=== PATIENT | male | born 1935 | race Caucasian/White ===

== ENCOUNTER 2016-10-06 10:20 | Inpatient (IN) | payer OTHER, MEDICARE ==
[~2016-10-06] VITALS: Ht 182.9 cm; Wt 78.5 kg
[2016-10-19] VITALS (12 sets, daily range): BP systolic 135–145; BP diastolic 70–83; PULSE 60–85; RESP 16–18; TEMP 98.2–98.6; O2SAT 97–99
[2016-10-19] MEDS ORDERED: HEPARIN SODIUM - IV 10,000 UNITS/10 ML VIAL ONE (06:05)
[2016-10-19] MEDS ORDERED: METO25TA3 PO (07:15)
[2016-10-19] MEDS ORDERED: METF500T PO (07:15)
[2016-10-19] MEDS ORDERED: AZOR10TA2 PO (07:15)
--- NOTE | 2016-10-19 07:26 | HHI.HP ---
History of Present Illness Chief Complaint: AAA History of Present Illness 81 yo male with asymptomatic AAA, was monitored for years but recently has crossed 5.5 cm threshold. No new back pain or any abdominal pain. Feels well - no recent change in history that would preclude OR. Past/Family/Social History Past Medical History HTN AAA CRI CAD Back pain Social History nonsmoker Bahai Family History NC Home Medications Reported Medications Amlodipine-Olmesartan (Dolores)10-20 Mg Tab1 Tab PO DAILY #30 TAB Ref 0 10/19/16 Metoprolol Tartrate 25 Mg Tab25 Mg PO DAILY #30 TAB Ref 0 10/19/16 Metformin 500 Mg [id number] Mg PO BIDPC #60 TAB Ref 0 With meals 10/19/16 Coded Allergies: No Known Allergies (Unverified , 10/19/16) Review of Systems Constitutional: DENIES: Fever, Chills Respiratory: DENIES: Shortness of breath Cardiovascular: DENIES: Chest pain, Claudication Gastrointestinal: DENIES: Abdominal pain, Vomiting, Anorexia Physical Exam Neuro: alert, oriented, no distress, DEJESUS HEENT: NC/AT; wears glasses Neck: no JVD Heart: reg rate, no M Lungs: clear B inspiratory and expiratory Abdomen: nontender Vascular: palpable femoral pulses Extremities: DEJESUS symmetrically pending will make in OR CTA reviewed Assessment and Plan Plan EVAR No blood products per patient wishes Discharge Planning 1-2 days cell: [phone] Pipo Barlow MD Oct 19, 2016 07:25
--- NOTE | 2016-10-19 07:31 | RADRPT ---
EXAM DATE/TIME: 10/19/2016 06:58 [place] COMPARISON: No previous studies available for comparison. INDICATIONS : Evaluate for pneumonia, pneumothorax and communicable disease. Pre op MEDICAL HISTORY : Cardiovascular disease. SURGICAL HISTORY : None. ENCOUNTER: Initial ACUITY: 1 day PAIN SCORE: 0/10 LOCATION: Bilateral chest FINDINGS: A single view of the chest demonstrates the lungs to be symmetrically aerated without evidence of mas s, infiltrate or effusion. The cardiomediastinal contours are unremarkable. Osseous structures are intact. CONCLUSION: 1. No acute cardiopulmonary disease. Eliseo Whyte MD on October 19, 2016 at 7:28 Board Certified Radiologist. This report was verified electronically.
[2016-10-19] MEDS ORDERED: ceFAZolin 2 GM PREMIX 50 ML ONE (08:06)
[2016-10-19] MEDS ORDERED: IOHEXOL 300 MG/ML 100 ML BTL (for Rad CT) OTHER ONE (08:57)
[2016-10-19] MEDS ORDERED: CHLORHEXIDINE GLUCONATE 2 % 1 PACK (2 CLOTHS) TOPICAL PRN (09:00)
[2016-10-19] MEDS ORDERED: LACTATED RINGER'S 1000 ML IV PRN (09:00)
[2016-10-19] MEDS ORDERED: METOPROLOL TARTRATE 25 MG TAB PO PRN (09:00)
[2016-10-19] MEDS ORDERED: POVIDONE IODINE 5% (ANTISEPSIS KIT) 4 APPLICATIONS EACH NARE PRN (09:00)
[2016-10-19] MEDS ORDERED: SODIUM CHLORID 0.9% 500 ML IV PRN (09:00)
[2016-10-19] MEDS ORDERED: INSULIN HUMAN REGULAR 1,000 UNITS/10 ML VIAL SQ PRN (09:00)
--- NOTE | 2016-10-19 10:50 | HHI.PR ---
Immediate Post Op Note Procedure Date: Oct 19, 2016 Pre Op Diagnosis: AAA Post Op Diagnosis: AAA Surgeon: Pipo Barlow Adjunct Professor(s): none Procedure: EVAR with 2 docking limbs B [address]ERT[address]IED COURT/MEDICAL INTERPRETER Perclose Findings: successful EVAR; good perfusion of B renal arteries and B hypogastric arteries after EVAR Good pedal signals at end of case Additional Information: Devices: [email or web address] Zenith 28-82 (main body) Zenith 13-90 and 20-90 (contralateral - LEFT) Zenith 24-90 (ipsilateral - RIGHT) Complications: none apparent Specimen(s) removed: none Estimated blood loss: 100mL Anesthesia: General Drains: None Fluids: 1800mL x'oid; 650 mL UOP IVF Patient to: PACU Patient Condition: Good Implant/Devices: SEE IMPLANT LOG (if applicable) Date/Time of Procedure: SEE SURGICAL CARE RECORD Pipo Barlow MD Oct 19, 2016 10:50
[2016-10-19] MEDS ORDERED: DO NOT ADM ANY ANTICOAGULANT DRUGS PRN (10:56)
[2016-10-19] MEDS: LACTATED RINGER'S 1000 ML INJ 1,000 ML IV SCH (11:00)
[2016-10-19] MEDS ORDERED: HYDROmorphone HCL 2 MG TAB PO PRN (11:00)
[2016-10-19] MEDS ORDERED: fentaNYL CITRATE 250 MCG/5 ML AMP ONE (11:04)
[2016-10-19] MEDS ORDERED: PROTAMINE SULFATE 50 MG/5 ML VIAL IV ONE (12:00)
[2016-10-19 12:16] LABS: BICARBONATE 23.7 MEQ/L (21.0-32.0); POTASSIUM 3.6 MEQ/L (3.5-5.1)
--- NOTE | 2016-10-19 14:20 | EKG ---
Date Performed: 10/19/2016 Time Performed: 07:14:27 PTAGE: 81 years EKG: Sinus rhythm MARKED LEFT AXIS DEVIATION PATTERN CONSISTENT WITH PULMONARY DISEASE VOLTAGE CRITERIA FOR LVH NONSPE CIFIC T-WAVE ABNORMALITY ABNORMAL ECG NO PREVIOUS TRACING DOCTOR: Ambrose Gutierrez Interpretating Date/Time 10/19/2016 14:16:06
[2016-10-19] MEDS ORDERED: IOHEXOL 300 MG/ML 50 ML BTL (for RAD DIAG) ONE (15:17)
[2016-10-19] MEDS ORDERED: PROPOFOL 200 MG/20 ML AMP IV ONE (15:18)
[2016-10-19] MEDS ORDERED: NEOSTIGMINE 3 MG/3 ML SYR IV ONE (15:19)
[2016-10-19] MEDS ORDERED: PHENYLEPH/NS 1000 MCG/10 ML SYR IV ONE (15:19)
[2016-10-19] MEDS ORDERED: LACTATED RINGER'S 1000 ML INJ 1,000 ML IV ONE (15:20)
[2016-10-19] MEDS ORDERED: NORMOSOL R INJ 1,000 ML IV ONE (15:20)
[2016-10-19] MEDS ORDERED: SODIUM CHLORID 0.9% 500 ML INJ 500 ML IV ONE (15:20)
--- NOTE | 2016-10-19 16:59 | PD.VS.PN ---
Subjective POD #: 0 Procedure(s): EVAR Subjective/Hospital Course feels well overall, no complaints. Fatigued Objective Vitals/I&O Date Time Temp Pulse Resp B/P Pulse Ox O2 Delivery O2 Flow Rate FiO2 10/19/16 16:04 71 10/19/16 15:33 98.6 71 16 145/83 98 Arterial Line 10/19/16 15:00 70 10/19/16 14:48 65 10/19/16 13:00 61 12 137/69 100 Nasal Cannula 2 10/19/16 11:45 97.6 62 15 145/76 100 Nasal Cannula 2 10/19/16 11:30 58 22 139/79 100 Nasal Cannula 2 139/69 10/19/16 11:15 58 20 126/72 100 Nasal Cannula 2 124/63 10/19/16 11:00 64 20 132/74 100 Nasal Cannula 3 118/65 10/19/16 10:53 97.5 65 26 131/73 100 Nasal Cannula 3 112/62 10/19/16 07:19 98.2 60 18 142/83 99 10/19/16 10/19/16 10/19/16 07:00 15:00 23:00 Intake Total 2160 ml 582 ml Output Total 2075 ml 1350 ml Balance 85 ml -768 ml Exam: groins ok Feet warm and motor intact Laboratory Laboratory Tests Test 10/19/16 11:20 Sodium Level 139 Potassium Level 3.6 Chloride Level 104 Carbon Dioxide Level 23.7 Anion Gap 11 Blood Urea Nitrogen 29 Creatinine 1.33 Estimat Glomerular Filtration 52 Rate Random Glucose 155 Calcium Level 7.6 Assessment and Plan Plan Doing well Cardiac diet Harding out in a.m. OOB and ambulate in a.m. Discharge Planning Likely Wednesday Pipo Barlow MD Oct 19, 2016 16:59
[2016-10-20] VITALS (25 sets, daily range): BP systolic 133–152; BP diastolic 74–87; PULSE 60–88; RESP 16–18; TEMP 98.1–99; O2SAT 96–98
--- NOTE | 2016-10-20 06:53 | PD.VS.PN ---
Subjective POD #: 1 Procedure(s): EVAR Subjective/Hospital Course Looks great, feels well No pain overnight Feet feel good. Harding just came out. Objective Vitals/I&O Date Time Temp Pulse Resp B/P Pulse Ox O2 Delivery O2 Flow Rate FiO2 10/20/16 04:00 98.5 70 18 144/74 96 10/20/16 04:00 72 10/20/16 02:00 68 10/20/16 01:00 72 10/19/16 23:57 72 10/19/16 23:57 98.4 73 18 135/74 97 10/19/16 23:00 74 10/19/16 22:00 74 10/19/16 21:00 74 10/19/16 20:00 98.4 72 18 138/70 97 10/19/16 20:00 85 10/19/16 19:00 76 10/19/16 16:59 98.6 73 16 142/81 98 10/19/16 16:04 71 10/19/16 15:33 98.6 71 16 145/83 98 Arterial Line 10/19/16 15:00 70 10/19/16 14:48 65 10/19/16 13:00 61 12 137/69 100 Nasal Cannula 2 10/19/16 11:45 97.6 62 15 145/76 100 Nasal Cannula 2 10/19/16 11:30 58 22 139/79 100 Nasal Cannula 2 139/69 10/19/16 11:15 58 20 126/72 100 Nasal Cannula 2 124/63 10/19/16 11:00 64 20 132/74 100 Nasal Cannula 3 118/65 10/19/16 10:53 97.5 65 26 131/73 100 Nasal Cannula 3 112/62 10/19/16 07:19 98.2 60 18 142/83 99 Exam: B groin access sites ok, no hematomas palpable pedal pulses 5/5 LE strength Laboratory Laboratory Tests Test 10/19/16 11:20 Sodium Level 139 Potassium Level 3.6 Chloride Level 104 Carbon Dioxide Level 23.7 Anion Gap 11 Blood Urea Nitrogen 29 Creatinine 1.33 Estimat Glomerular Filtration 52 Rate Random Glucose 155 Calcium Level 7.6 Assessment and Plan Plan simi out - void check in 6h normalize HL IVF D/C tomorrow Discharge Planning Wed with RTC 1m with post-op EVAR CT Pipo Barlow MD Oct 20, 2016 06:53
[2016-10-20] MEDS: PANTOPRAZOLE SOD 40 MG DELAYED RELEASE TAB PO SCH (08:14)
[2016-10-20] MEDS: METOPROLOL TARTRATE 25 MG TAB PO SCH (08:15)
[2016-10-20] MEDS: LOSARTAN 50 MG TAB PO SCH (08:15)
[2016-10-20] MEDS: ASPIRIN 81 MG CHEW TAB PO SCH (08:15)
[2016-10-20] MEDS: ENOXAPARIN SODIUM 30 MG/0.3 ML SYRINGE SQ SCH (08:16)
[2016-10-20] MEDS: LACTATED RINGER'S 1000 ML INJ 1,000 ML IV SCH (10:49)
--- NOTE | 2016-10-20 13:01 | MP ---
cc: YUN BARLOW MD DATE OF SURGERY 10/19/2016 PREOPERATIVE DIAGNOSIS Abdominal aortic aneurysm POSTOPERATIVE DIAGNOSIS Abdominal aortic aneurysm PROCEDURE 1. Endovascular exclusion of an abdominal aortic aneurysm with a bifurcated device with two docking limbs. 2. Bilateral common femoral artery Perclose. MEDICATIONS Yun Barlow MD ANESTHESIA General INDICATION Mr. Contreras is an 81-year-old gentleman with an abdominal aortic aneurysm that appears anatomically amenable to endovascular repair. He is taken to the operating room for this procedure. DESCRIPTION OF THE PROCEDURE Informed consent was obtained from the patient. He was taken to the operating room and placed supine on the operating room table. An appropriate time-out was taken to ensure the patient's identity, operative site and planned procedure. The administration of two grams of Ancef was initiated prior to skin incision and will be discontinued after a single preoperative dose. Everyone in the room agreed with the time-out and we proceeded. He was prepped from his nipples to his knee. A 21 gauge micropuncture needle was used to access the right common femoral artery. This was exchanged using Seldinger technique through the micropuncture sheath through which a 0.05 stork wire was introduced and the micropuncture sheath was changed for a 5-Monegasque sheath and two Perclose ProGlide sutures were inserted, tagged and not tied down. These will be used later. An 8-Monegasque 10 cm sheath was introduced. A similar procedure was done on the patient's left common femoral artery with micropuncture access, stork wire, two Perclose and an 8-Monegasque 25 cm sheath. At this point, the patient systemically heparinized and throughout the remainder of the case, the ACT was kept greater than 250. The Stork wire was advanced into the proximal descending thoracic aorta and the right-hand Stork wire was exchanged using the catheter for a Lunderquist wire. Over the left-hand wire Stork wire, a marker flushed straight catheter was placed into the perivisceral aorta. The 8-Monegasque sheath on the right was removed and Radha dilators were used to dilate up the skin, subcutaneous tract and arteriotomy. The main device, which was a [employer] Zenith 28 x 82, was introduced and an interval angiogram showed the location of the renal arteries. The device was deployed without difficulty taking caution to preserve the renal arteries. The device was deployed down to the contralateral gate. The top cap was released thereby deploying the suprarenal stent. A road runner wire was placed through the flush catheter on the left-hand side and the catheter was exchanged for a Cobra catheter and we attempted to navigate into the contralateral gate, but this was unsuccessful and ultimately with a combination of a 5-Monegasque antral sheath inside of the 8-Monegasque 25 cm sheath and a SOS selective catheter, we were able to navigate into the contralateral gate and the catheter was advanced over this and the angiogram confirmed we were indeed in the contralateral gate. A Lunderquist wire was passed through this. The marker catheter was then introduced and angiogram taken to the location of the left hypogastric artery. This distance from the bottom of the main body contralateral gate to the hypogastric artery was longer then the available devices and as such an interposition piece was placed. A venous 13 x 90 limb was placed and then a 20 x 90 secondary limb was placed at the distal aspect of that secondary limb and made it immediately proximal to the hypogastric takeoff. The remainder of the main body was deployed. The top cap, which had been restrained immediately prior to deployment of the proximal device, was recaptured and the liver system was removed. A marker catheter was placed over right-hand side and an angiogram confirmed the location of the right hypogastric artery and the ipsilateral limb, which was a 24 x 90 piece was then placed such that the distal aspect of the limb was immediate proximal to the hypogastric artery. All proximal and distal ends, as well as the junctions were ballooned with a Coda balloon and a completion angiogram was obtained. This shows no type 1 or 3 endoleak and only very sluggish type 2 endoleak. Both renal arteries are patent and both hypogastric arteries are patent. The wire, catheter, and sheaths were removed. The Perclose were tied down. Hemostasis was achieved in the groins. There were Doppler signals in the feet and the heparin was reversed with protamine. There were no complications. I was present and scrubbed and performed the entire procedure. MD FILIBERTO Fischer/SLADE /6:05 PM /12:55 PM GAYLE
[2016-10-21] VITALS (15 sets, daily range): BP systolic 106–136; BP diastolic 60–76; PULSE 70–144; RESP 20–22; TEMP 98.5–98.7; O2SAT 96–100
[2016-10-21] MEDS: METOPROLOL TARTRATE 25 MG TAB PO SCH (04:54)
[2016-10-21] MEDS ORDERED: OXYC-392 PO (08:33)
[2016-10-21] MEDS ORDERED: SODIUM CHLORID 0.9% 500 ML INJ 500 ML IV ONE (08:45)
--- NOTE | 2016-10-21 08:50 | PD.VS.DC ---
Discharge Summary Admission Date: Oct 19, 2016 at 06:05 Discharge Date: Oct 21, 2016 Admission Diagnosis: (1) AAA (abdominal aortic aneurysm) Discharge Diagnosis: (1) AAA (abdominal aortic aneurysm) Status: Acute Brief History from admission 81 yo male with asymptomatic AAA, was monitored for years but recently has crossed 5.5 cm threshold. No new back pain or any abdominal pain. Feels well - no recent change in history that would preclude OR. Procedure(s): EVAR Significant Findings GENERAL: A&OX3,NAD,GCS15 SKIN: Warm and dry CARDIOVASCULAR: A fib, hx of RESPIRATORY: BS CTA GASTROINTESTINAL: Abdomen s/nt Pt denies back or abdominal pain Pt denies any SOB/CP or heart palpitations Laboratory Tests Test 10/19/16 11:20 Blood Urea Nitrogen 29 MG/DL (7-18) Creatinine 1.33 MG/DL (0.60-1.30) Estimat Glomerular Filtration 52 ML/MIN (>89) Rate Random Glucose 155 MG/DL (74-106) Calcium Level 7.6 MG/DL (8.5-10.1) Hospital Course: 81 yo male with a PMH of asymptomatic AAA Pt has been monitored for years and has recently crossed 5.5 cm threshold Pt did not report any new back pain or any abdominal pain pt s/p EVAR Pt overall feels well Pt denies back/abdominal pain Pt denies CP/SOB/ Heart palpitations Discharge Condition: Good Discharge Disposition: Discharge Home Discharge Instructions: F/U in our OPC in 1m with a CTA A/P post evar F/U with Cardiology this week Call the office with any questions or concerns May resume regular activities as tolerated Katrina SANDHU the grafter/[place] [phone] Any questions or concerns: Call [facility] [phone] Katrina Gan Oct 21, 2016 08:50
[2016-10-21] MEDS ORDERED: DILTIAZEM HCL 25 MG/5 ML VIAL IV ONE (09:00)
[2016-10-21] MEDS: LOSARTAN 50 MG TAB PO SCH (09:28)
[2016-10-21] MEDS: ENOXAPARIN SODIUM 30 MG/0.3 ML SYRINGE SQ SCH (09:28)
[2016-10-21] MEDS: ASPIRIN 81 MG CHEW TAB PO SCH (09:29)
[2016-10-21] MEDS: PANTOPRAZOLE SOD 40 MG DELAYED RELEASE TAB PO SCH (09:29)
== END 2016-10-21 10:51 | disposition home or self-care (01) | DRG 269 ==
LOC: HSDI 10-19 06:05 → EDSTATUS 10-19 08:00 → HCIN 10-19 13:54
PROVIDERS: ADMIT Surgery; ATTEND Surgery
PROC: 04V03E6 (ICD-10-PCS; principal; 2016-10-19 07:41)
DX: I71.4 Abdominal aortic aneurysm, without rupture (principal); I12.9 Hypertensive chronic kidney disease with stage 1 through stage 4 chronic kidney disease, or unspecified chronic kidney disease; I25.10 Atherosclerotic heart disease of native coronary artery without angina pectoris; N18.9 Chronic kidney disease, unspecified
CPT/HCPCS: 71010; 75630; 76937; 80048; 93005; C1725; C1769; C1874; J0690; J1644; J1650; J2370; J2710; J2720; J3010; J7040; J7120; Q9967

== ENCOUNTER 2017-02-08 07:06 | Inpatient (IN) | payer OTHER, MEDICARE ==
[~2017-02-08] VITALS: Ht 182.9 cm; Wt 81.5 kg
[2017-02-08] VITALS (7 sets, daily range): BP systolic 119–136; BP diastolic 56–67; PULSE 61–69; RESP 16–17; TEMP 97.8–98.2; O2SAT 96–99
[~2017-02-08 07:06] MED LIST: ALEV220T14 PO; AMLO10TA2 PO; FERR325T8 PO; FOLI800T PO; OLME0.09 PO; VITA100T50 PO
[2017-02-08] MEDS ORDERED: INSULIN HUMAN REGULAR 1,000 UNITS/10 ML VIAL SQ PRN (08:00)
[2017-02-08] MEDS ORDERED: SODIUM CHLORID 0.9% 500 ML IV PRN (08:00)
[2017-02-08] MEDS ORDERED: POVIDONE IODINE 5% (ANTISEPSIS KIT) 4 APPLICATIONS EACH NARE PRN (08:00)
[2017-02-08] MEDS ORDERED: LACTATED RINGER'S 1000 ML IV PRN (08:00)
[2017-02-08] MEDS ORDERED: CHLORHEXIDINE GLUCONATE 2 % 1 PACK (2 CLOTHS) TOPICAL PRN (08:00)
[2017-02-08] MEDS ORDERED: METOPROLOL TARTRATE 25 MG TAB PO PRN (08:00)
--- NOTE | 2017-02-08 08:03 | HHI.HP ---
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 RICHAR 0.5. No endo leak. Presents for fem-fem bypass. No change in history that would preclude OR today. Past/Family/Social History Past Medical History CAD HTN CRI DM AAA Past Surgical History EVAR Social History Oriental orthodox Family History NC Home Medications Reported Medications Phytonadione (Vitamin K) 100 Mcg Tab, 1 TAB PO DAILY 02/05/17 Folic Acid (Folic Acid) 0.8 Mg Tab, 800 MCG PO DAILY for Nutritional Supplement , TAB 0 Refills 02/05/17 Ferrous Sulfate (Ferrous Sulfate) 325 Mg (65 Mg Iron) Tablet, 325 MG PO DAILY for Nutritional Supplement, #30 TAB 0 Refills 02/05/17 Olmesartan (Olmesartan) 20 Mg Tab, 20 MG PO DAILY for Blood Pressure Management , #30 TAB 0 Refills 02/05/17 Amlodipine (Amlodipine) 10 Mg Tab, 10 MG PO DAILY for Blood Pressure Management , #30 TAB 0 Refills 02/05/17 Naproxen Sodium (Aleve Arthritis) 220 Mg Tab, 220 MG PO BID Y for PAIN SCALE 1 TO 5, TAB 02/05/17 Discontinued Reported Medications Amlodipine-Olmesartan (Dolores) 10-20 Mg Tab, 1 TAB PO DAILY for Blood Pressure Management, #30 TAB 0 Refills 10/19/16 Metoprolol Tartrate (Metoprolol Tartrate) 25 Mg Tab, 25 MG PO DAILY, #30 TAB 0 Refills 10/19/16 Discontinued Scripts Oxycodone (Oxycodone) 5 Mg Tab, 5 MG PO Q6HR Y for PAIN SCALE 1 TO 5, #30 TAB 0 Refills Prov:Katrina Gan 10/21/16 Coded Allergies: No Known Allergies (Unverified , 10/19/16) Review of Systems Constitutional: DENIES: Fever, Chills Cardiovascular: COMPLAINS OF: Lower Extremity Edema, DENIES: Chest pain Musculoskeletal: COMPLAINS OF: Joint Swelling Physical Exam Neuro: alert, oriented, no distress, DEJESUS HEENT: NC/AT, anicteric sclera Neck: no JVD Heart: reg rate, no M Lungs: clear B Abdomen: nontender Vascular: palpable R femoral and pedal pulse no L femoral or pedal pulse Extremities: R LE swelling Laboratory Tests Test 02/08/17 07:42 CTA Reviewed Caprini VTE Risk Assessment Caprini VTE Risk Assessment: Mod/High Risk (score >= 2) Caprini Risk Assessment Model Point Value = 1 Point Value = 2 Point Value = 3 Point Value = 5 Age 41-60 Minor surgery BMI > 25 kg/m2 Swollen legs Varicose veins or History of unexplained or recurrent spontaneous Oral contraceptives or hormone replacement Sepsis (< 1 month) Serious lung disease, including pneumonia (< 1 month) Abnormal pulmonary function Acute myocardial infarction Congestive heart failure (< 1 month) History of inflammatory bowel disease Medical patient at bed rest Age 61-74 Arthroscopic surgery Major open surgery (> 45 min) Laparoscopic surgery (> 45 min) Malignancy Confined to bed (> 72 hours) Immobilizing plaster cast Central venous access Age >= 75 History of VTE Family history of VTE Factor V Leiden Prothrombin [id number] Lupus anticoagulant Anticardiolipin antibodies Elevated serum homocysteine Heparin-induced thrombocytopenia Other congenital or acquired thrombophilia Stroke (< 1 month) Elective arthroplasty Hip, pelvis, or leg fracture Acute spinal cord injury (< 1 month) Prophylaxis Regimen Total Risk Factor Score Risk Level Prophylaxis Regimen 0-1 Low Early ambulation 2 Moderate Order ONE of the following: *Sequential Compression Device (SCD) *Heparin 5000 units SQ BID 3-4 Higher Order ONE of the following medications: *Heparin 5000 units SQ TID *Enoxaparin/Lovenox 40 mg SQ daily (WT < 150 kg, CrCl > 30 mL/min) *Enoxaparin/Lovenox 30 mg SQ daily (WT < 150 kg, CrCl > 10-29 mL/min) *Enoxaparin/Lovenox 30 mg SQ BID (WT < 150 kg, CrCl > 30 mL/min) AND/OR *Sequential Compression Device (SCD) 5 or more Highest Order ONE of the following medications: *Heparin 5000 units SQ TID (Preferred with Epidurals) *Enoxaparin/Lovenox 40 mg SQ daily (WT < 150 kg, CrCl > 30 mL/min) *Enoxaparin/Lovenox 30 mg SQ daily (WT < 150 kg, CrCl > 10-29 mL/min) *Enoxaparin/Lovenox 30 mg SQ BID (WT < 150 kg, CrCl > 30 mL/min) AND *Sequential Compression Device (SCD) Assessment and Plan Plan R to L fem-fem no CBC POA to CPCU Discharge Planning 2-3 days : [phone] Pipo Barlow MD Feb 08, 2017 08:03
[2017-02-08 08:10] LABS: INTERNATIONAL NORMALIZED RATIO 0.9 RATIO; PROTHROMBIN TIME - PATIENT 10.4 SEC (9.8-11.6)
[2017-02-08 08:13] LABS: BICARBONATE 22.5 MEQ/L (21.0-32.0); POTASSIUM 3.4 MEQ/L (3.5-5.1)
[2017-02-08] MEDS ORDERED: PROTAMINE SULFATE 50 MG/5 ML VIAL ONE (08:14)
[2017-02-08] MEDS ORDERED: HEPARIN SODIUM - IV 10,000 UNITS/10 ML VIAL ONE (08:14)
[2017-02-08] MEDS ORDERED: HYDROmorphone HCL 2 MG TAB PO PRN (08:15)
[2017-02-08] MEDS ORDERED: MIDAZOLAM HCL 2 MG/2 ML VIAL ONE (08:22)
[2017-02-08] MEDS ORDERED: FAMOTIDINE 20 MG/2 ML VIAL ONE (08:22)
[2017-02-08] MEDS ORDERED: ACETAMINOPHEN 1000 MG/100 ML 100 ML IV ONE (08:22)
[2017-02-08] MEDS ORDERED: ceFAZolin 2 GM PREMIX 50 ML ONE ×2 (08:44→08:59)
[2017-02-08] MEDS: FOLIC ACID 1 MG TAB PO SCH (09:00)
[2017-02-08] MEDS: ASPIRIN EC 81 MG TABEC PO SCH (09:00)
[2017-02-08] MEDS: FERROUS SULFATE 325 MG (65 MG ELEMENTAL IRON) TAB PO SCH (09:00)
[2017-02-08] MEDS: FAMOTIDINE 20 MG TAB PO SCH ×2 (09:00→20:33)
[2017-02-08] MEDS: LOSARTAN 50 MG TAB PO SCH (09:00)
[2017-02-08] MEDS ORDERED: PHYTONADIONE PO SCH (09:00)
[2017-02-08] MEDS ORDERED: BUPIVACAINE HCL PF 0.5% 30 ML VIAL ONE (09:28)
[2017-02-08] MEDS ORDERED: [UNRECOGNIZED DRUG - OTHER] IV ONE (09:41)
[2017-02-08] MEDS ORDERED: HEPARIN IV ONE (09:41)
[2017-02-08] MEDS ORDERED: SODIUM CHLORIDE IV ONE (09:41)
[2017-02-08] MEDS ORDERED: THROMBIN (TOPICAL) 20,000 UNIT SPRAY KIT ONE (10:05)
--- NOTE | 2017-02-08 10:59 | HHI.PR ---
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
[2017-02-08] MEDS ORDERED: DO NOT ADM ANY ANTICOAGULANT DRUGS PRN (11:05)
[2017-02-08] MEDS ORDERED: ONDANSETRON HCL 4 MG/2 ML VIAL IV PUSH ONE (12:00)
[2017-02-08] MEDS ORDERED: GLYCOPYRROLATE 1 MG/5 ML SYRINGE IV PUSH ONE (12:00)
[2017-02-08] MEDS ORDERED: ROCURONIUM INJ 50 MG/5 ML SYRINGE IV PUSH ONE (12:00)
[2017-02-08] MEDS ORDERED: PROPOFOL 200 MG/20 ML AMP IV ONE (12:00)
[2017-02-08] MEDS ORDERED: NEOSTIGMINE 3 MG/3 ML SYR IV ONE (12:00)
[2017-02-08] MEDS ORDERED: NORMOSOL R INJ 1,000 ML IV ONE (12:00)
[2017-02-08] MEDS ORDERED: SODIUM CHLORID 0.9% 500 ML INJ 500 ML IV ONE (12:00)
[2017-02-08] MEDS ORDERED: LIDOCAINE HCL 1% PF 5 ML AMPULE OTHER ONE (12:00)
[2017-02-08] MEDS ORDERED: ePHEDrine/NS 25 MG/5 ML SYR IV ONE (12:00)
--- NOTE | 2017-02-08 13:09 | MP ---
cc: YUN BARLOW MD DATE OF SURGERY: 02/08/2017 PREOPERATIVE DIAGNOSIS Left lower exam ischemia, status post EVAR (endovascular aneurysm repair). POSTOPERATIVE DIAGNOSIS Left lower exam ischemia, status post EVAR (endovascular aneurysm repair). PROCEDURE Dsdkw-kw-ejby fem-fem bypass with 8 mm PTFE. ATTENDING SURGEON Yun Barlow. RESIDENT SURGEON None. ANESTHESIA General. INDICATIONS Mr. Contreras is an 81-year-old gentleman who had endovascular aneurysm exclusion several months ago. He presented with left leg ischemia, motor intact. A CT scan showed that his left limb was occluded. He is taken to the operating room for left fem-fem bypass. DESCRIPTION OF PROCEDURE Informed consent was obtained from the patient. He was taken to the operating room and placed supine on the operating table. An appropriate timeout was taken to ensure the patient's identity, operative site and planned procedure. The administration of two grams of Ancef was initiated prior to skin incision and will be discontinued after a single preoperative dose. Everyone in the room agreed with the timeout and we proceeded. He was prepped from his nipples to his toes. An oblique incision was made in the patient's both groins and carried down to the subcutaneous tissue with electrocautery. The common femoral artery was identified and dissected free in both groins. An incision was made in the inguinal ligament and a tunnel is then created between the two groins in a subfascial plane. An 8 mm ringed PTFE was passed through this tunnel taking caution not to twist it. The patient was systemically heparinized with 8000 units of IV heparin. Proximal and distal control of the right common femoral artery was obtained with profunda clamps and a longitudinal arteriotomy was made with an 11 blade and extended with Ced scissors. The graft was spatulated and sewn end-to-side with running 5-0 Woodbine-Rigo suture. At the completion it was flushed and noted to be hemostatic. Surgicel was placed around the graft anastomosis and the graft was clamped with a Yassine Softjaw. Proximal and distal control of the left common femoral, profunda and SFA were all obtained with profunda clamps and a longitudinal arteriotomy was made with an 11 blade and extended with [place] scissors. The graft was cut to an appropriate length, spatulated and sewn end-to-side with running 5-0 Woodbine-Rigo suture. At the completion it was flushed and noted to be hemostatic. There were nice Doppler signals in the feet. The heparin was reversed with protamine. The wounds were irrigated, infiltrated with Marcaine and closed with 2-0 Polysorb, 3-0 Polysorb and 4-0 Monocryl. The sponge and needle counts were correct at the end of the case. I was present and scrubbed and performed the entire procedure. MD FILIBERTO Fischer/MARCOS /11:30 AM /12:53 PM
[2017-02-09] VITALS (27 sets, daily range): BP systolic 108–145; BP diastolic 56–73; PULSE 59–94; RESP 16–17; TEMP 97.9–98.5; O2SAT 95–96
[2017-02-09 05:45] LABS: BICARBONATE 24.8 MEQ/L (21.0-32.0); POTASSIUM 3.4 MEQ/L (3.5-5.1)
[2017-02-09] MEDS: ASPIRIN EC 81 MG TABEC PO SCH (09:00)
[2017-02-09] MEDS: FOLIC ACID 1 MG TAB PO SCH (09:00)
[2017-02-09] MEDS: FERROUS SULFATE 325 MG (65 MG ELEMENTAL IRON) TAB PO SCH (09:00)
[2017-02-09] MEDS: LOSARTAN 50 MG TAB PO SCH (09:08)
[2017-02-09] MEDS: FAMOTIDINE 20 MG TAB PO SCH ×2 (09:08→21:35)
[2017-02-09] MEDS: ENOXAPARIN SODIUM 30 MG/0.3 ML SYRINGE SQ SCH (09:15)
--- NOTE | 2017-02-09 09:16 | PD.VS.PN ---
Subjective POD #: 1 Procedure(s): R to L fem-fem Subjective/Hospital Course Pt reported abdominal "fullness" Pt denies abdominal pain/nausea Pt tolerating Po well Harding intact Pt reports improved LLE symptoms "Does not feel cold anymore" Objective Vitals/I&O Date Time Temp Pulse Resp B/P (MAP) Pulse Ox O2 Delivery O2 Flow Rate FiO2 02/09/17 06:01 63 02/09/17 05:00 61 02/09/17 04:38 62 02/09/17 03:07 60 02/09/17 03:07 97.9 65 17 115/69 (84) 95 02/09/17 02:32 70 02/09/17 01:39 65 02/09/17 00:02 60 02/08/17 23:30 97.8 69 16 119/56 (77) 96 02/08/17 23:30 63 02/08/17 22:00 61 02/08/17 21:30 64 02/08/17 20:20 66 02/08/17 19:10 98.2 66 17 136/64 (88) 96 02/08/17 16:30 98.0 66 16 133/67 (89) 97 02/08/17 14:00 63 02/08/17 14:00 62 16 116/58 (77) 99 Nasal Cannula 2 02/08/17 14:00 97.8 63 16 122/58 (79) 99 02/08/17 13:00 62 16 127/60 (82) 100 Nasal Cannula 2 02/08/17 12:30 62 16 126/62 (83) 99 Nasal Cannula 2 02/08/17 12:15 62 16 123/61 (81) 100 Nasal Cannula 2 02/08/17 12:00 60 16 123/59 (80) 100 Nasal Cannula 2 02/08/17 11:45 60 16 122/61 (81) 100 Nasal Cannula 2 02/08/17 11:30 68 16 120/61 (80) 99 Nasal Cannula 2 02/08/17 11:15 78 16 127/63 (84) 98 Nasal Cannula 2 02/08/17 11:05 97.5 84 16 126/61 (82) 98 Nasal Cannula 2 02/09/17 02/09/17 02/09/17 07:00 15:00 23:00 Intake Total 240 ml Output Total 850 ml Balance -610 ml Exam: GENERAL: Afebrile 81/M/ A&OX3,NAD,GCS15 SKIN: Warm and dry Provena wound vac to bilat groins intact w/o hematoma,swelling or pain CARDIOVASCULAR: Regular rate and rhythm without murmurs, gallops, or rubs. RESPIRATORY: Breath sounds equal bilaterally. No accessory muscle use. GASTROINTESTINAL: Abdomen soft, non-tender, nondistended. MUSCULOSKELETAL: No cyanosis, or edema. Pulses: Palpable R DP/PT Palpable L DP LE warm w/ motor intact Laboratory Laboratory Tests Test 02/09/17 04:29 Blood Urea Nitrogen 20 Creatinine 1.37 Random Glucose 114 Calcium Level 8.0 Sodium Level 139 Potassium Level 3.4 Chloride Level 106 Carbon Dioxide Level 24.8 Anion Gap 8 Estimat Glomerular Filtration Rate 50 Assessment and Plan Assessment: (1) PAD (peripheral artery disease) Status: Acute (2) AAA (abdominal aortic aneurysm) Status: Acute Plan Pt S/P R to L fem-fem, POD 1 doing well w/o complications Plan D/C Harding D/C MIVF PT/OOB D/C planning Katrina SANDHU [facility] [phone] Discharge Planning D/C planning 1-3 days : [phone] Katrina Gan Feb 09, 2017 09:16
[2017-02-10] VITALS (13 sets, daily range): BP systolic 118–137; BP diastolic 58–74; PULSE 63–83; RESP 16; TEMP 98.1–98.5; O2SAT 95–96
[2017-02-10] MEDS: LOSARTAN 50 MG TAB PO SCH (08:18)
[2017-02-10] MEDS: ENOXAPARIN SODIUM 30 MG/0.3 ML SYRINGE SQ SCH (08:18)
[2017-02-10] MEDS: FAMOTIDINE 20 MG TAB PO SCH (08:18)
[2017-02-10] MEDS: ASPIRIN EC 81 MG TABEC PO SCH (08:18)
[2017-02-10] MEDS: FOLIC ACID 1 MG TAB PO SCH (08:19)
[2017-02-10] MEDS: FERROUS SULFATE 325 MG (65 MG ELEMENTAL IRON) TAB PO SCH (08:19)
--- NOTE | 2017-02-10 09:36 | PD.VS.PN ---
Subjective POD #: 2 Procedure(s): R to L fem-fem Subjective/Hospital Course Pt without complaints of abdominal "fullness" Pt denies abdominal pain/nausea Pt tolerating Po well Pt reports improved LLE symptoms Objective Vitals/I&O Date Time Temp Pulse Resp B/P (MAP) Pulse Ox O2 Delivery O2 Flow Rate FiO2 02/10/17 09:00 76 02/10/17 08:00 79 02/10/17 07:15 98.4 73 16 137/74 (95) 95 02/10/17 07:00 67 02/10/17 06:29 70 02/10/17 05:03 63 02/10/17 04:19 75 02/10/17 03:36 67 02/10/17 03:36 98.5 74 16 118/58 (78) 95 02/10/17 02:26 72 02/10/17 01:21 70 02/10/17 00:21 75 02/09/17 23:54 71 02/09/17 23:54 98.2 76 17 108/56 (73) 95 02/09/17 22:12 73 02/09/17 21:56 74 02/09/17 20:07 71 02/09/17 19:00 98.5 71 16 134/66 (88) 96 02/09/17 19:00 75 02/09/17 18:00 72 02/09/17 17:00 70 02/09/17 16:00 77 02/09/17 15:21 98.1 94 16 130/69 (89) 96 02/09/17 15:00 68 02/09/17 14:00 67 02/09/17 13:00 68 02/09/17 12:00 67 02/09/17 11:10 98.3 71 16 145/73 (97) 95 02/09/17 11:00 67 02/09/17 10:00 64 02/10/17 02/10/17 02/10/17 07:00 15:00 23:00 Intake Total 480 ml Output Total 475 ml Balance 5 ml Exam: GENERAL: Afebrile 81/M/ A&OX3,NAD,GCS15 SKIN: Warm and dry Incision to L/R groins intact w/o R/D/S NO hematoma present CARDIOVASCULAR: Regular rate and rhythm without murmurs, gallops, or rubs. RESPIRATORY: Breath sounds equal bilaterally. No accessory muscle use. GASTROINTESTINAL: Abdomen soft, non-tender, nondistended. MUSCULOSKELETAL: No cyanosis, or edema. Palpable R/L DP Assessment and Plan Assessment: (1) PAD (peripheral artery disease) Status: Acute (2) AAA (abdominal aortic aneurysm) Status: Acute Plan Pt S/P R to L fem-fem, POD 2 doing well w/o complications Plan D/C today Arranged post op f/u Educated and discussed D/C instructions and post operative care Katrina SANDHU [facility] [phone] Discharge Planning D/C today : [phone] Katrina Gan Feb 10, 2017 09:36
--- NOTE | 2017-02-10 09:47 | PD.VS.DC ---
Discharge Summary Admission Date: Feb 08, 2017 at 07:06 Discharge Date: Feb 10, 2017 Admission Diagnosis: (1) AAA (abdominal aortic aneurysm) (2) PAD (peripheral artery disease) Discharge Diagnosis: (1) PAD (peripheral artery disease) ICD Codes: I73.9 - Peripheral vascular disease, unspecified Status: Acute (2) AAA (abdominal aortic aneurysm) ICD Codes: I71.4 - Abdominal aortic aneurysm, without rupture Status: Acute Brief History from admission 81 yo male with EVAR and L iliac limb occlusion resulting in L LE pain. RICHRA 0.5. No endo leak. Presents for fem-fem bypass. No change in history that would preclude OR today. Procedure(s): R to L fem-fem Significant Findings GENERAL: Afebrile 81/M/ A&OX3,NAD,GCS15 SKIN: Warm and dry Incision to L/R groins intact w/o R/D/S NO hematoma present CARDIOVASCULAR: Regular rate and rhythm without murmurs, gallops, or rubs. RESPIRATORY: Breath sounds equal bilaterally. No accessory muscle use. GASTROINTESTINAL: Abdomen soft, non-tender, nondistended. MUSCULOSKELETAL: No cyanosis, or edema. Palpable R/L DP Laboratory Tests Test 02/08/17 07:42 02/09/17 04:29 Blood Urea Nitrogen 37 MG/DL (7-18) 20 MG/DL (7-18) Creatinine 1.59 MG/DL (0.60-1.30) 1.37 MG/DL (0.60-1.30) Random Glucose 134 MG/DL (74-106) 114 MG/DL (74-106) Potassium Level 3.4 MEQ/L (3.5-5.1) 3.4 MEQ/L (3.5-5.1) Estimat Glomerular Filtration Rate 42 ML/MIN (>89) 50 ML/MIN (>89) Calcium Level 8.0 MG/DL (8.5-10.1) Hospital Course: 81 yo male with EVAR and L iliac limb occlusion resulting in L LE pain. RICHAR 0.5. No endo leak. Presents for fem-fem bypass. Pt S/P fem-fem bypass POD 2 doing well w/o complications Pt will F/U in 2W with an RICHAR Allergies Coded Allergies Type Severity Reaction Last Updated Verified No Known Allergies 10/19/16 No 02/08/17 02/08/17 02/09/17 02/09/17 02/10/17 02/10/17 06:00 18:00 06:00 18:00 06:00 18:00 Intake Total 1380 ml 240 ml 840 ml 480 ml Output Total 1025 ml 850 ml 475 ml Balance 355 ml -610 ml 840 ml 5 ml Intake Oral 120 ml 240 ml 840 ml 480 ml IV Total 10 ml Other 1250 ml Output Urine Total 950 ml 850 ml 475 ml Estimated Blood Loss 75 ml Bladder Scan Volume Amount 477 ml # Voids 3 Laboratory Tests Test 02/08/17 07:42 02/09/17 04:29 Prothrombin Time 10.4 SEC Prothromb Time International Ratio 0.9 RATIO Blood Urea Nitrogen 37 MG/DL 20 MG/DL Creatinine 1.59 MG/DL 1.37 MG/DL Random Glucose 134 MG/DL 114 MG/DL Calcium Level 8.8 MG/DL 8.0 MG/DL Sodium Level 137 MEQ/L 139 MEQ/L Potassium Level 3.4 MEQ/L 3.4 MEQ/L Chloride Level 103 MEQ/L 106 MEQ/L Carbon Dioxide Level 22.5 MEQ/L 24.8 MEQ/L Anion Gap 12 MEQ/L 8 MEQ/L Estimat Glomerular Filtration Rate 42 ML/MIN 50 ML/MIN Orders Procedure Category Date Status Time Basic Metabolic Panel LAB 02/08/17 Complete (Bmp) 07:29 Prothrombin Time / LAB 02/08/17 Complete Inr (Pt) 07:29 Lactated Ringer's MED 02/08/17 Complete 1000 Ml Inj (Lr 1000 M 08:00 Sodium Chlorid 0.9% MED 02/08/17 Complete 500 Ml Inj (Ns 500 M 08:00 Metoprolol Tartrate MED 02/08/17 In Process (Lopressor) 08:00 Povidone Iod 5% MED 02/08/17 In Process Antisepsis Kit 08:00 Chlorhexidine 2% MED 02/08/17 In Process Cloth (Chlorhexidine 08:00 Insulin Human Regular MED 02/08/17 In Process Inj (Novolin R Inj 08:00 Admit To Inpatient ADMITTING 02/08/17 Transmitted Code Status CODE 02/08/17 Transmitted 08:03 Vital Signs (Adult) MARVEL 02/08/17 In Process 08:03 Ep Specialist / MARVEL 02/08/17 In Process Telemetry 08:03 Activity Oob Ad Glenna [facility] 02/09/17 In Process 08:03 Activity Bed Rest MARVEL 02/08/17 In Process 08:[address] Nica GRIER 02/08/17 In Process 08:03 Precautions [facility] 02/08/17 In Process 08:03 ^ Vac Dressing To Be MARVEL 02/08/17 In Process Used 08:03 Diet Heart Healthy DIET 02/08/17 Transmitted Breakfast Basic Metabolic Panel LAB 02/09/17 Complete (Bmp) 06:00 Consult Pt Eval & PT 02/08/17 Logged Treat 08:03 Famotidine (Pepcid) MED 02/08/17 In Process 09:00 Oxycodone (Roxicodone) MED 02/08/17 In Process 08:15 Hydromorphone MED 02/08/17 In Process (Dilaudid) 08:15 Inpatient ADMITTING 02/08/17 Transmitted Certification Amlodipine (Norvasc) MED 02/08/17 In Process 09:00 Ferrous Sulfate MED 02/08/17 In Process (Ferrous Sulfate) 09:00 Folic Acid (Folate) MED 02/08/17 In Process 09:00 Losartan (Cozaar) MED 02/08/17 In Process 09:00 (Nf) Phytonadione MED 02/08/17 Complete (Vitamin K) 09:00 Aspirin Ec (Ecotrin MED 02/08/17 In Process Ec) 09:00 Protamine Sulfate Inj MED 02/08/17 Complete (Protamine Sulfate 08:14 Heparin Inj (Heparin MED 02/08/17 Complete Inj) 08:14 Acetaminophen 1000 MED 02/08/17 Complete Mg/100 Ml (Ofirmev 10 08:22 Midazolam Inj (Versed MED 02/08/17 Complete Inj) 08:22 Famotidine Inj MED 02/08/17 Complete (Pepcid Inj) 08:22 Cefazolin 2 Gm Premix MED 02/08/17 Complete (Ancef 2 Gm Premix 08:44 Cefazolin 2 Gm Premix MED 02/08/17 Complete (Ancef 2 Gm Premix 08:59 Bupivacaine Pf 0.5% MED 02/08/17 Complete Inj (Marcaine Pf 0.5 09:28 Urinary Catheter MAR[facility]EL 02/08/17 Complete Management 09:30 Heparin-Ns/Pf Flush MED 02/08/17 Complete Bag (Heparin-Ns/Pf F 09:41 Thrombin Top [place] MED 02/08/17 Complete (Thrombin Top [place]) 10:05 Am Admit Pre Op Care [facility] 02/08/17 Complete Enoxaparin Inj MED 02/09/17 In Process (Lovenox Inj) 10:00 [facility] MED 02/08/17 Complete Information 11:05 [facility]17 Complete Post Anesthesia Oxygen [facility] 02/08/17 Complete Pacu Cpcu Holding [facility] 02/08/17 Complete Hourly Remove Urinary [facility] 02/09/17 In Process Catheter 07:00 (Hub Use Only)Inp Phy CONS 02/09/17 Transmitted Cons/Ref ^ Straight Catheter [facility] 02/09/17 In Process 17:58 Attending Discharge DISCHARGE 02/10/17 Transmitted Order Vital Signs Date Time Temp Pulse Resp B/P (MAP) Pulse Ox O2 Delivery O2 Flow Rate FiO2 02/10/17 09:00 76 02/10/17 08:00 79 02/10/17 07:15 98.4 73 16 137/74 (95) 95 02/10/17 07:00 67 02/10/17 06:29 70 02/10/17 05:03 63 02/10/17 04:19 75 02/10/17 03:36 67 02/10/17 03:36 98.5 74 16 118/58 (78) 95 02/10/17 02:26 72 02/10/17 01:21 70 02/10/17 00:21 75 02/09/17 23:54 71 02/09/17 23:54 98.2 76 17 108/56 (73) 95 02/09/17 22:12 73 02/09/17 21:56 74 02/09/17 20:07 71 02/09/17 19:00 98.5 71 16 134/66 (88) 96 02/09/17 19:00 75 02/09/17 18:00 72 02/09/17 17:00 70 02/09/17 16:00 77 02/09/17 15:21 98.1 94 16 130/69 (89) 96 02/09/17 15:00 68 02/09/17 14:00 67 02/09/17 13:00 68 02/09/17 12:00 67 02/09/17 11:10 98.3 71 16 145/73 (97) 95 02/09/17 11:00 67 02/09/17 10:00 64 02/09/17 09:00 66 02/09/17 08:00 68 02/09/17 07:45 97.9 59 16 111/61 (78) 95 02/09/17 07:00 65 02/09/17 06:01 63 02/09/17 05:00 61 02/09/17 04:38 62 02/09/17 03:07 60 02/09/17 03:07 97.9 65 17 115/69 (84) 95 02/09/17 02:32 70 02/09/17 01:39 65 02/09/17 00:02 60 02/08/17 23:30 97.8 69 16 119/56 (77) 96 02/08/17 23:30 63 02/08/17 22:00 61 02/08/17 21:30 64 02/08/17 20:20 66 02/08/17 19:10 98.2 66 17 136/64 (88) 96 02/08/17 16:30 98.0 66 16 133/67 (89) 97 02/08/17 14:00 63 02/08/17 14:00 62 16 116/58 (77) 99 Nasal Cannula 2 02/08/17 14:00 97.8 63 16 122/58 (79) 99 02/08/17 13:00 62 16 127/60 (82) 100 Nasal Cannula 2 02/08/17 12:30 62 16 126/62 (83) 99 Nasal Cannula 2 02/08/17 12:15 62 16 123/61 (81) 100 Nasal Cannula 2 02/08/17 12:00 60 16 123/59 (80) 100 Nasal Cannula 2 02/08/17 11:45 60 16 122/61 (81) 100 Nasal Cannula 2 02/08/17 11:30 68 16 120/61 (80) 99 Nasal Cannula 2 02/08/17 11:15 78 16 127/63 (84) 98 Nasal Cannula 2 02/08/17 11:05 97.5 84 16 126/61 (82) 98 Nasal Cannula 2 02/08/17 07:49 98.8 83 16 157/83 (107) 98 Discharge Condition: Good Discharge Disposition: Discharge Home Discharge Instructions: Call the office to report any new concerns or developments Call the office to report any new onset redness, swelling or increased drainage to Bilat groin incisions Leave incisions open to air May apply a non stick dressing to bilat groins if drainage present A Daily walking regimen is recommended- As tolerated May shower NO tub baths until incision is fully healed F/U in 2W with an RICHAR for follow up Katrina SANDHU [facility] [phone] Any questions or concerns: Call [facility] [phone] Katrina Gan Feb 10, 2017 09:47
[2017-02-10] MEDS ORDERED: MISCMIS81 (09:59)
[2017-02-10] MEDS ORDERED: PERC5TAB12 PO (10:00)
== END 2017-02-10 13:00 | disposition home or self-care (01) | DRG 253 ==
LOC: HSDI 07:06 → HCPC 14:45
PROVIDERS: ADMIT Surgery; ATTEND Surgery
PROC: 041K0JJ Bypass Right Femoral Artery to Left Femoral Artery with Synthetic Substitute, Open Approach (ICD-10-PCS; principal; 2017-02-08 08:35)
DX: I74.5 Embolism and thrombosis of iliac artery (principal); T82.898A Other specified complication of vascular prosthetic devices, implants and grafts, initial encounter; E11.22 Type 2 diabetes mellitus with diabetic chronic kidney disease; I73.9 Peripheral vascular disease, unspecified; I25.10 Atherosclerotic heart disease of native coronary artery without angina pectoris; I12.9 Hypertensive chronic kidney disease with stage 1 through stage 4 chronic kidney disease, or unspecified chronic kidney disease; N18.9 Chronic kidney disease, unspecified; Z53.1 Procedure and treatment not carried out because of patient's decision for reasons of belief and group pressure
CPT/HCPCS: 80048; 85610; J0131; J0690; J1644; J1650; J2250; J2405; J2710; J2720; J3010; J7040; J7120